=== PATIENT | male | born 1960 | race Caucasian/White ===

== ENCOUNTER 2017-05-17 17:25 | Emergency (ER) | payer BC ==
[~2017-05-17] VITALS: Ht 185.4 cm; Wt 124.0 kg
[2017-05-17 17:29] VITALS: Ht 185.4 cm; Wt 124.0 kg
[2017-05-17] MEDS ORDERED: ONDANSETRON INJ 2 MG/ML 2 ML VIAL IV STA (17:38)
[2017-05-17] MEDS ORDERED: SODIUM CHLORIDE 0.9% 1000ML 1,000 ML IV STA (17:38)
[2017-05-17] MEDS ORDERED: KETOROLAC TROMETHAMINE 30 MG/ML VIAL IV STA (17:38)
[2017-05-17] MEDS ORDERED: MoRPHine SULFATE 4 MG/ML 1 ML CARP\\VIAL IV STA (17:38)
[2017-05-17] MEDS ORDERED: MULT-506 PO (18:01)
[2017-05-17] MEDS ORDERED: ROSU20TA PO (18:01)
[2017-05-17 18:07] LABS: BASO % 0.3 %; BASO ABS # 0.03 K/uL (0-0.2); EOS % 1.2 %; EOS ABS # 0.11 K/uL (0-0.5); IG# 0.02 K/uL (0.00-0.02); LYMPH % 19.4 %; LYMPH ABS # 1.82 K/uL (1.2-3.4); MEAN CELL VOLUME 84.8 fL (80-100); MEAN CORPUSCULAR HEMOGLOBIN 29.6 pg (25-34); MEAN CORPUSCULAR HGB CONC 34.9 g/dl (32-36); MEAN PLATELET VOLUME 9.8 fL (7.4-10.4); MONO % 6.5 %; MONO ABS # 0.61 K/uL (0.11-0.59); NEUT % 72.4 %; NEUT ABS # 6.79 K/uL (1.4-6.5); PLATELET COUNT 242 K/uL (130-400); RED CELL DISTRIBUTION WIDTH CV 12.6 % (11.5-14.5); RED CELL DISTRIBUTION WIDTH SD 38.1 fL (36.4-46.3); WHITE BLOOD COUNT 9.38 K/uL (4.8-10.8)
[2017-05-17 18:29] LABS: CALCIUM 9.1 mg/dl (8.5-10.1); CREATININE 1.14 mg/dl (0.60-1.40); TOTAL PROTEIN 7.5 gm/dl (6.4-8.2)
--- NOTE | 2017-05-17 18:33 | DIAGNOSTIC IMAGING REPORT ---
CT OF THE ABDOMEN AND PELVIS WITHOUT CONTRAST, STONE PROTOCOL CLINICAL HISTORY: Abrupt onset L flank pain, radiates to abdomen COMPARISON STUDY: None. TECHNIQUE: Helical axial images of the abdomen and pelvis were obtained without IV or oral contrast according to renal stone protocol. A dose lowering technique was utilized adhering to the principles of ALARA. FINDINGS: A 5 mm distal left ureteral calculus results in mild left hydroureteronephrosis with perinephric and periureteral infiltration. There is a 3 mm calculus within the lower pole of the left kidney. There are no right ureteral calculi. There are gallstones within the gallbladder. Unenhanced images of the liver, spleen, adrenal glands and pancreas are normal. There is no evidence for a bowel obstruction. This extensive colonic diverticulosis without evidence for acute diverticulitis. There are fat-containing bilateral inguinal hernias. No suspicious osseous lesions are present. There is no lymphadenopathy. The appendix is normal. IMPRESSION: 1. 5 mm distal left ureteral calculus which results in mild left hydroureteronephrosis. 2. 3 mm left renal calculus. 3. Cholelithiasis. 4. Fat-containing bilateral inguinal hernias. 5. Extensive colonic diverticulosis without evidence for acute diverticulitis. Electronically signed by: Abhishek Maldonado M.D. 05/17/2017 6:32 PM Dictated Date/Time: 05/17/2017 6:26 PM
[2017-05-17 18:40] LABS: POTASSIUM 4.2 mmol/L (3.5-5.1)
[2017-05-17] MEDS ORDERED: TAMSULOSIN HCL 0.4 MG CAP PO STA (18:54)
[2017-05-17] MEDS ORDERED: OXYC1TAB3 PO (19:19)
[2017-05-17] MEDS ORDERED: ONDA4TAB10 SL (19:19)
[2017-05-17] MEDS ORDERED: TAMS0.4C38 PO (19:19)
--- NOTE | 2017-05-17 19:23 | EMERGENCY ROOM VISIT NOTE ---
History First contact with patient: 17:33 Chief Complaint: FLANK PAIN Stated Complaint: PAIN IN L SIDE BACK,GOES AROUND TO FRONT History of Present Illness The patient is a 56 year old male who presents to the Emergency Room via private vehicle accompanied by family with complaints of "pain and left side of back, goes around to the front". The patient states that he was sitting at a hockey game, when he developed abrupt sided left flank pain. He states that he has the urge to urinate. There is no dysuria. He has never had this before. There is no history of kidney stone. He rates his overall pain currently as a 7 /10. Review of Systems A complete 10-point Review of Systems was discussed with the patient, with pertinent positives and negatives listed in the History of Present Illness. All remaining Review of Systems questions can be considered negative unless otherwise specified. Past Medical/Surgical History No pertinent Family History No pertinent Social History Smoking Status: Never Smoker Pt. is from [facility] Current/Historical Medications Scheduled Multivitamin (Multivitamin), 1 TAB PO QAM Ondasetron Odt (Zofran Odt), 4 MG SL Q6H Rosuvastatin Calcium (Crestor), 20 MG PO QAM Tamsulosin Hcl (Flomax), 0.4 MG PO HS Scheduled PRN Oxycodone Ir (Roxicodone Ir), 1-2 TAB PO Q4H PRN for Pain Physical Exam Vital Signs Date Time Temp Pulse Resp B/P (MAP) Pulse Ox O2 Delivery O2 Flow Rate FiO2 05/17/17 20:18 90 18 165/97 100 05/17/17 19:43 77 18 155/96 100 Room Air 88 157/94 90 165/97 05/17/17 17:29 36.3 67 20 183/107 99 Room Air Physical Exam VITAL SIGNS - Vital signs and nursing notes were reviewed. Stable. GENERAL - 56-year-old male appearing his stated age who is in no acute distress. Communicates well with provider and answers questions appropriately. SKIN - Without rashes. LUNGS - Chest wall symmetric without accessory muscle use, intercostals retractions, or central cyanosis. Normal vesicular breath sounds CTA B/L. No wheezes, rales, or rhonchi appreciated. CARDIAC - RRR with S1/S2. No murmur, rubs, or gallops appreciated. ABDOMEN - Abdominal contour normal without pulsations or visible masses. No tenderness, palpable masses, hepatosplenomegaly, or ascites noted. Medical Decision & Procedures ER Provider Diagnostic Interpretation: CT OF THE ABDOMEN AND PELVIS WITHOUT CONTRAST, STONE PROTOCOL CLINICAL HISTORY: Abrupt onset L flank pain, radiates to abdomen COMPARISON STUDY: None. TECHNIQUE: Helical axial images of the abdomen and pelvis were obtained without IV or oral contrast according to renal stone protocol. A dose lowering technique was utilized adhering to the principles of ALARA. FINDINGS: A 5 mm distal left ureteral calculus results in mild left hydroureteronephrosis with perinephric and periureteral infiltration. There is a 3 mm calculus within the lower pole of the left kidney. There are no right ureteral calculi. There are gallstones within the gallbladder. Unenhanced images of the liver, spleen, adrenal glands and pancreas are normal. There is no evidence for a bowel obstruction. This extensive colonic diverticulosis without evidence for acute diverticulitis. There are fat-containing bilateral inguinal hernias. No suspicious osseous lesions are present. There is no lymphadenopathy. The appendix is normal. IMPRESSION: 1. 5 mm distal left ureteral calculus which results in mild left hydroureteronephrosis. 2. 3 mm left renal calculus. 3. Cholelithiasis. 4. Fat-containing bilateral inguinal hernias. 5. Extensive colonic diverticulosis without evidence for acute diverticulitis. Electronically signed by: Abhishek Maldonado M.D. 05/17/2017 6:32 PM Dictated Date/Time: 05/17/2017 6:26 PM Laboratory Results 05/17/17 17:50 Red Blood Count 5.07, Mean Corpuscular Volume 84.8, Mean Corpuscular Hemoglobin 29.6, Mean Corpuscular Hemoglobin Concent 34.9, Mean Platelet Volume 9.8, Neutrophils (%) (Auto) 72.4, Lymphocytes (%) (Auto) 19.4, Monocytes (%) (Auto) 6.5, Eosinophils (%) (Auto) 1.2, Basophils (%) (Auto) 0.3, Neutrophils # (Auto) 6.79, Lymphocytes # (Auto) 1.82, Monocytes # (Auto) 0.61, Eosinophils # (Auto) 0.11, Basophils # (Auto) 0.03 05/17/17 17:50 Test 05/17/17 17:35 05/17/17 17:50 Urine Color YELLOW Urine Appearance CLOUDY (CLEAR) Urine pH 5.0 (4.5-7.5) Urine Specific Myra 1.025 (1.000-1.030) Urine Protein NEG (NEG) Urine Glucose (UA) NEG (NEG) Urine Ketones NEG (NEG) Urine Occult Blood 3+ (NEG) Urine Nitrite NEG (NEG) Urine Bilirubin NEG (NEG) Urine Urobilinogen NEG (NEG) Urine Leukocyte Esterase NEG (NEG) Urine WBC (Auto) 1-5 /hpf (0-5) Urine RBC (Auto) >30 /hpf (0-4) Urine Hyaline Casts (Auto) 1-5 /lpf (0-5) Urine Epithelial Cells (Auto) 5-10 /lpf (0-5) Urine Bacteria (Auto) NEG (NEG) White Blood Count 9.38 K/uL (4.8-10.8) Red Blood Count 5.07 M/uL (4.7-6.1) Hemoglobin 15.0 g/dL (14.0-18.0) Hematocrit 43.0 % (42-52) Mean Corpuscular Volume 84.8 fL (80-100) Mean Corpuscular Hemoglobin 29.6 pg (25-34) Mean Corpuscular Hemoglobin Concent 34.9 g/dl (32-36) Platelet Count 242 K/uL (130-400) Mean Platelet Volume 9.8 fL (7.4-10.4) Neutrophils (%) (Auto) 72.4 % Lymphocytes (%) (Auto) 19.4 % Monocytes (%) (Auto) 6.5 % Eosinophils (%) (Auto) 1.2 % Basophils (%) (Auto) 0.3 % Neutrophils # (Auto) 6.79 K/uL (1.4-6.5) Lymphocytes # (Auto) 1.82 K/uL (1.2-3.4) Monocytes # (Auto) 0.61 K/uL (0.11-0.59) Eosinophils # (Auto) 0.11 K/uL (0-0.5) Basophils # (Auto) 0.03 K/uL (0-0.2) RDW Standard Deviation 38.1 fL (36.4-46.3) RDW Coefficient of Variation 12.6 % (11.5-14.5) Immature Granulocyte % (Auto) 0.2 % Immature Granulocyte # (Auto) 0.02 K/uL (0.00-0.02) Anion Gap 6.0 mmol/L (3-11) Est Creatinine Clear Calc Drug Dose 98.6 ml/min Estimated GFR () 82.3 Estimated GFR (Non- 71.0 BUN/Creatinine Ratio 13.8 (10-20) Calcium Level 9.1 mg/dl (8.5-10.1) Total Bilirubin 0.6 mg/dl (0.2-1) Aspartate Amino Transf (AST/SGOT) 24 U/L (15-37) Alanine Aminotransferase (ALT/SGPT) 31 U/L (12-78) Alkaline Phosphatase 82 U/L (45-117) Total Protein 7.5 gm/dl (6.4-8.2) Albumin 4.0 gm/dl (3.4-5.0) Globulin 3.5 gm/dl (2.5-4.0) Albumin/Globulin Ratio 1.1 (0.9-2) Medications Administered Medications (Trade) Dose Ordered Sig/Jt Route Start Time Stop Time Status Last Admin Dose Admin Sodium Chloride 1,000 ml @ 999 mls/hr Q1H1M STAT IV 05/17/17 17:38 05/17/17 18:38 DC 05/17/17 17:50 999 MLS/HR Ketorolac Tromethamine (Toradol Inj) 30 mg NOW STAT IV 05/17/17 17:38 05/17/17 17:40 DC 05/17/17 17:50 30 MG Morphine Sulfate (MoRPHine SULFATE INJ) 4 mg NOW STAT IV 05/17/17 17:38 05/17/17 17:40 DC 05/17/17 17:50 4 MG Ondansetron HCl (Zofran Inj) 4 mg NOW STAT IV 05/17/17 17:38 05/17/17 17:40 DC 05/17/17 17:51 4 MG Tamsulosin HCl (Flomax Cap) 0.4 mg NOW STAT PO 05/17/17 18:54 05/17/17 18:55 DC 05/17/17 18:58 0.4 MG Oxycodone HCl (Roxicodone Immediate Rel 5MG Home Pack) 1 homepack UD STAT PO 05/17/17 19:34 05/17/17 19:35 DC 05/17/17 20:18 1 [facility] Medical Decision Patient was seen and evaluated as above. He presents with L flank pain. After obtaining a thorough history and physical examination IV access was initiated, the above workup was performed. He was given normal saline, Zofran, morphine and Toradol. He was reevaluated and his pain was much less. CT scan was obtained to evaluate for presence of kidney stone. This does reveal a 5 mm stone. There is mild hydronephrosis. No evidence of kidney failure. In regard to his blood work there is no evidence of infection as there is no concern leukocytosis or anemia. There is no evidence of kidney or liver failure. Urine reveals blood but no infection. He rated his pain as a 1 after receiving the pain medications. He appears stable for outpatient management. He'll be given Flomax, urine strainer, Zofran and oxycodone outpatient. He is to follow with his family doctor in [facility] for potential referral to urology. He will be staying overnight in the area and I informed him that if his pain was to worsen he is to return. He was educated upon management, educated upon worrisome symptoms in which to return, had questions answered prior to discharge, and was discharged home in good condition. There were no red flags in the [place] drug monitoring system. Case was discussed with the attending physician. In the evaluation and treatment of this patient following differential diagnoses entertained: Kidney stone, AAA, diverticulitis, appendicitis, among others. Impression Primary Impression: Left flank pain Additional Impressions: 5 mm distal left ureteral calculus Hydroureteronephrosis Departure Information Dispostion Home / Self-Care Condition GOOD Prescriptions Oxycodone Ir (Roxicodone Ir) 5 Mg Tab 1-2 TAB PO Q4H Y for Pain, #20 TAB For Initial Treatment Prov: Victor Hugo Romero PA-C 05/17/17 Ondasetron Odt (ZOFRAN ODT) 4 Mg Tab 4 MG SL Q6H for Nausea, #10 TAB Prov: Victor Hugo Romero PA-C 05/17/17 Tamsulosin Hcl (FLOMAX) 0.4 Mg Cap 0.4 MG PO HS for 14 Days, #14 CAP Prov: Victor Hugo Romero PA-C 05/17/17 Referrals No Doctor, Assigned (PCP) Patient Instructions My [facility] Additional Instructions You have been treated in the Emergency Department today for a Kidney Stone that is caught in your ureter (between kidney and bladder). You have received pain medicine in the emergency department which impairs your ability to operate a vehicle. It is illegal for you to drive after receiving these medicines. You have been prescribed Oxy IR to be used for pain control. This is a narcotic medication. You cannot drive or consume alcohol while on this medicine. This medicine should only be used for pain that cannot be controlled with over-the- counter pain medicines. You have been prescribed Zofran to be used for any nausea or vomiting. Take as prescribed. You have been prescribed Flomax 0.4 mg to be taken ONCE daily. This medicine has been prescribed as it can help relax the smooth muscles of the urinary tract increasing transit time of the kidney stone. For pain control, you can use the following [id number] medicines (if >12 yo): - Regular strength (325mg/tab) Tylenol (acetaminophen) 2 tabs every 4-6 hours as needed. Do not exceed 12 tablets in a 24 hour period. Avoid taking more than 3 grams (3000 mg) of Tylenol per day. This includes any other sources of acetaminophen you may take on a regular basis. - Regular strength (200 mg/tab) Advil (ibuprofen) 1-2 tabs every 4-6 hours as needed. Do not exceed a dose of 3200 mg per day. You have been provided a strainer and specimen collection cup. You should strain your urine to collect any passed stones. Your stones can be placed into the specimen cup and taken to your Urologist for further evaluation. Please call your family doctor to schedule follow-up regarding today's visit for potential referral to urology. Return to the Emergency Department if your symptoms persist despite the treatment plan outlined above or if you develop the following symptoms: intractable pain, fever, chills, or large amounts of blood in your urine. CT OF THE ABDOMEN AND PELVIS WITHOUT CONTRAST, STONE PROTOCOL CLINICAL HISTORY: Abrupt onset L flank pain, radiates to abdomen COMPARISON STUDY: None. TECHNIQUE: Helical axial images of the abdomen and pelvis were obtained without IV or oral contrast according to renal stone protocol. A dose lowering technique was utilized adhering to the principles of ALARA. FINDINGS: A 5 mm distal left ureteral calculus results in mild left hydroureteronephrosis with perinephric and periureteral infiltration. There is a 3 mm calculus within the lower pole of the left kidney. There are no right ureteral calculi. There are gallstones within the gallbladder. Unenhanced images of the liver, spleen, adrenal glands and pancreas are normal. There is no evidence for a bowel obstruction. This extensive colonic diverticulosis without evidence for acute diverticulitis. There are fat-containing bilateral inguinal hernias. No suspicious osseous lesions are present. There is no lymphadenopathy. The appendix is normal. IMPRESSION: 1. 5 mm distal left ureteral calculus which results in mild left hydroureteronephrosis. 2. 3 mm left renal calculus. 3. Cholelithiasis. 4. Fat-containing bilateral inguinal hernias. 5. Extensive colonic diverticulosis without evidence for acute diverticulitis. Electronically signed by: Abhishek Maldonado M.D. 05/17/2017 6:32 PM Dictated Date/Time: 05/17/2017 6:26 PM Problem Qualifiers
[2017-05-17] MEDS ORDERED: OXYCODONE IR HOME PACK PO STA (19:34)
[2017-05-17 20:18] VITALS: BP 165/97; PULSE 90; O2SAT 100
== END 2017-05-17 20:18 | disposition home or self-care (01) ==
LOC: C.EDB 17:27
DX: R10.9 Unspecified abdominal pain (principal); N13.2 Hydronephrosis with renal and ureteral calculous obstruction; Z79.899 Other long term (current) drug therapy